=== PATIENT | male | born 1990 | race Two or more races ===

== ENCOUNTER 2024-01-31 08:39 | Emergency (ER) | payer BC, MEDICAID ==
[~2024-01-31] VITALS: Ht 154.9 cm; Wt 58.1 kg
[2024-01-31] MEDS ORDERED: KETOROLAC TROMETHAMINE 15 MG/ML VIAL ONE (08:58)
[2024-01-31] MEDS ORDERED: PANTOPRAZOLE 40 MG VIAL ONE (08:59)
[2024-01-31] MEDS ORDERED: MAG HYDROX/AL HYDROX/SIMETH 30 ML UDC ONE (08:59)
[2024-01-31] MEDS: MAG HYDROX/AL HYDROX/SIMETH 30 ML UDC PO ONE (09:07)
[2024-01-31] MEDS: KETOROLAC TROMETHAMINE 15 MG/ML VIAL IV ONE (09:07)
[2024-01-31] MEDS: PANTOPRAZOLE 40 MG VIAL IV ONE (09:07)
[2024-01-31 09:09] LABS: BASOPHILS % (AUTO) 0.2 % (0.0-2.0); EOSINOPHILS # (AUTO) 0.1 K/uL (0.0-0.7); EOSINOPHILS % (AUTO) 2.1 % (0.0-6.0); HEMATOCRIT 44 % (39-51); LYMPHOCYTES % (AUTO) 31.1 % (20.0-44.0); MEAN CORPUSCULAR HEMOGLOBIN 30 PG (26.0-33.0); MEAN CORPUSCULAR HGB CONC 34 g/dl (31.0-36.0); MEAN CORPUSCULAR VOLUME 88 fL (80-96); MONOCYTES # (AUTO) 0.5 K/uL (0.1-1.30); MONOCYTES % (AUTO) 8.6 % (2.0-12.0); NEUTROPHILS # (AUTO) 3.7 K/uL (1.8-8.9); PLATELET COUNT (AUTO) 304 K/uL (150-450); RED CELL DISTRIBUTION WIDTH 13.2 % (11.5-15.0); WHITE BLOOD COUNT (AUTO) 6.4 K/uL (4.3-11.0)
[2024-01-31 09:22] LABS: ALBUMIN 3.8 g/dL (3.4-5.0); BILIRUBIN,DIRECT 0.1 mg/dL (0.0-0.2); BILIRUBIN,TOTAL 0.5 mg/dL (0.2-1.0); CALCIUM, SERUM 9.2 mg/dL (8.5-10.1); CREATININE 0.8 mg/dL (0.6-1.3); POTASSIUM 4.4 mmol/L (3.5-5.1); TOTAL PROTEIN, SERUM 7.6 g/dL (6.4-8.2)
[2024-01-31] MEDS ORDERED: KETO10TA2 PO (10:25)
[2024-01-31] MEDS ORDERED: ONDA4TAB11 PO (10:25)
[2024-01-31] MEDS ORDERED: PANT20TA2 PO (10:25)
[2024-01-31] MEDS ORDERED: DICY20TA11 PO (10:25)
[2024-01-31 10:52] VITALS: BP 119/79; TEMP 98; O2SAT 100
== END 2024-01-31 10:53 | disposition home or self-care (01) ==
LOC: ER 08:50
DX: K52.9 Noninfective gastroenteritis and colitis, unspecified (principal); R10.13 Epigastric pain; Z79.1 Long term (current) use of non-steroidal anti-inflammatories (NSAID); Z79.899 Other long term (current) drug therapy
CPT/HCPCS: 99284; 96374; 96375; 85025; 80048; 83690; 80076; 36415; J1885

== ENCOUNTER 2025-07-05 14:43 | Emergency (ER) | payer BC ==
[~2025-07-05] VITALS: Ht 157.5 cm; Wt 65.3 kg
[~2025-07-05 14:43] MED LIST: DICY20TA11 PO; KETO10TA2 PO; ONDA4TAB11 PO; PANT20TA2 PO
[2025-07-05 16:21] VITALS: TEMP 98.4
[2025-07-05] MEDS ORDERED: IBUPROFEN 600 MG TABLET ONE (16:28)
[2025-07-05] MEDS ORDERED: ACETAMINOPHEN ES 500 MG TABLET ONE (16:28)
[2025-07-05] MEDS: ACETAMINOPHEN ES 500 MG TABLET PO ONE (16:30)
[2025-07-05] MEDS: BACI/NEOM/POLY B OINT PKT 1 UDPKT PACKET TP ONE (16:30)
[2025-07-05] MEDS: IBUPROFEN 600 MG TABLET PO ONE (16:30)
[2025-07-05] MEDS ORDERED: IBUP-1490 PO (17:19)
[2025-07-05] MEDS ORDERED: CEPH-570 PO (17:19)
[2025-07-05] MEDS ORDERED: SULF1TAB48 PO (17:20)
[2025-07-05 18:20] VITALS: BP 127/60; O2SAT 98
== END 2025-07-05 18:21 | disposition home or self-care (01) ==
LOC: ER 14:52
DX: S62.521A Displaced fracture of distal phalanx of right thumb, initial encounter for closed fracture (principal); X58.XXXA Exposure to other specified factors, initial encounter; Y93.89 Activity, other specified; Y92.89 Other specified places as the place of occurrence of the external cause; Y99.0 Civilian activity done for income or pay
CPT/HCPCS: 29130; 73130; 99284; A6403